=== PATIENT | female | born 1945 | race Caucasian/White ===

== ENCOUNTER → 2021-01-21 10:09 | Outpatient (BNVA) | payer MEDICARE, BC, SELFPAY | PROVIDERS: Family Provider Family Medicine; PCP Family Medicine; Visit Provider Podiatrist Foot & Ankle Surgery | DX: M06.9 Rheumatoid arthritis, unspecified (principal); M20.41 Other hammer toe(s) (acquired), right foot; M20.42 Other hammer toe(s) (acquired), left foot; M21.611 Bunion of right foot; M21.612 Bunion of left foot; M76.829 Posterior tibial tendinitis, unspecified leg; M21.41 Flat foot [pes planus] (acquired), right foot; M21.42 Flat foot [pes planus] (acquired), left foot | CPT/HCPCS: 73630 ==

== ENCOUNTER → 2023-08-02 14:01 | Outpatient (BNVA) | payer MEDICARE, SELFPAY | PROVIDERS: Family Provider Family Medicine; PCP Family Medicine; Visit Provider Internal Medicine Pulmonary Disease | DX: R91.8 Other nonspecific abnormal finding of lung field (principal); R59.0 Localized enlarged lymph nodes; K44.9 Diaphragmatic hernia without obstruction or gangrene; Z99.89 Dependence on other enabling machines and devices; J84.10 Pulmonary fibrosis, unspecified | CPT/HCPCS: 99204 ==

== ENCOUNTER → 2023-10-31 12:48 | Outpatient (BNVA) | payer MEDICARE, SELFPAY | PROVIDERS: Family Provider Family Medicine; PCP Family Medicine; Visit Provider Internal Medicine Pulmonary Disease | DX: J98.59 Other diseases of mediastinum, not elsewhere classified (principal); K44.9 Diaphragmatic hernia without obstruction or gangrene; G47.33 Obstructive sleep apnea (adult) (pediatric); Z99.89 Dependence on other enabling machines and devices | CPT/HCPCS: 99214 ==

== ENCOUNTER 2024-01-17 10:17 | Outpatient (CLI) | payer MEDICARE, SELFPAY ==
--- NOTE | 2024-01-17 10:30 | PETR_ITS ---
PROCEDURE INFORMATION: Exam: PET/CT Skull Base to Mid-thigh Exam date and time: 01/17/2024 11:33 AM Age: 78 years old Clinical indication: Abnormal radiologic findings in the chest on CT chest on 07/21/2023 (anterior mediastinal nodule or adenopathy). LABS AND CLINICAL REPORTS: Glucose: 157 mg/dl Treatment strategy for malignancy (PET staging): Initial Staging (PI) TECHNIQUE: Imaging protocol: Following at least four-hour fasting and following the injection of radiopharmaceutical, low dose CT images were obtained. Then, PET images were obtained. Attenuation corrected images were constructed using the CT scan. Fused images of PET and CT were reviewed. The standardized uptake values (SUV) reported below are maximum values within a region of interest, expressed in gm/ml. Exam includes orbital meatal line to mid-thigh. Radiopharmaceutical: 13.59 mCi F-18 FDG (Fluorodeoxyglucose), IV. Time of imaging post radiopharmaceutical administration: 1 hour Injection site: Right antecubital vein COMPARISON: CT chest 07/21/2023 FINDINGS: Brain: Visualized brain has normal physiologic uptake. Pharynx: No abnormal uptake. Larynx: No abnormal uptake. Lungs, pleura and trachea: No abnormal uptake. There are stable small calcified granulomas in the left lower lobe. There is stable subsegmental atelectasis or linear scar in the lingula. No pleural effusion. Heart: Normal physiologic uptake. Mediastinal space: No abnormal uptake. Non FDG avid upper anterior mediastinal elongated nodular density on axial image 65 measures 1.5 x 0.9 x 3.5 cm/35 HU versus 1.9 x 1.5 x 3.1 cm/27 HU on 07/21/2023. There is stable sequela of exposure to granulomatous disease with calcified granulomas in normal size subcarinal and left hilar lymph nodes. There is stable moderate size hiatal hernia. Liver: No abnormal uptake. Gallbladder and bile ducts: No abnormal uptake. Status post cholecystectomy. pancreas: No abnormal uptake. Pancreas: No abnormal uptake. Spleen: No abnormal uptake. No splenomegaly. Punctate calcified granuloma. Adrenal glands: No abnormal uptake. Kidneys and ureters: Normal physiologic uptake. No nodules. Stomach and bowel: No abnormal uptake. No hydronephrosis. Intraperitoneal and retroperitoneal spaces: No abnormal uptake. No ascites. Urinary bladder: Normal physiologic uptake. Reproductive: No abnormal uptake. The uterus is absent post surgically. Vasculature: No abnormal uptake. No aortic aneurysm. Lymph nodes: No abnormal uptake. No lymphadenopathy in the head, neck, chest, abdomen, pelvis, and extremities. Bones/joints: Mildly increased bilateral synovial uptake in the shoulders is compatible with benign inflammatory/degenerative finding. Soft tissues: No abnormal uptake in the visualized head, neck, chest, abdomen, pelvis, and extremities. There are small fat containing bilateral inguinal hernias, and small fat containing midline ventral hernia above the level of the umbilicus. [facility] [id number] IMPRESSION: No abnormal radiotracer uptake. Specifically, there is no abnormal uptake within the elongated anterior superior mediastinal density suggestive of benign incidental finding. It has slightly changed in shape but not in overall volume in comparison with prior exam on 07/21/2023 not typical for lymphadenopathy possibly representing cystic lesion with complex fluid. Given lack of progression or abnormal uptake no further workup is recommended.
== END 2024-01-17 10:18 | disposition home or self-care (01) ==
LOC: RAD 10:18
PROVIDERS: Family Provider Family Medicine; PCP Family Medicine; Visit Provider Internal Medicine Pulmonary Disease
DX: R91.8 Other nonspecific abnormal finding of lung field (principal); J98.59 Other diseases of mediastinum, not elsewhere classified
CPT/HCPCS: 78815; A9552

== ENCOUNTER → 2024-01-26 12:50 | Outpatient (BNVA) | payer MEDICARE, SELFPAY | PROVIDERS: Family Provider Family Medicine; PCP Family Medicine; Visit Provider Internal Medicine Pulmonary Disease | DX: J98.59 Other diseases of mediastinum, not elsewhere classified (principal); K44.9 Diaphragmatic hernia without obstruction or gangrene; G47.33 Obstructive sleep apnea (adult) (pediatric); Z99.89 Dependence on other enabling machines and devices | CPT/HCPCS: 99214 ==

== ENCOUNTER → 2024-12-12 14:17 | Outpatient (BNVA) | payer MEDICARE, SELFPAY | PROVIDERS: Family Provider Family Medicine; PCP Family Medicine; Visit Provider Podiatrist Foot & Ankle Surgery | DX: L60.3 Nail dystrophy (principal); I73.9 Peripheral vascular disease, unspecified; L84 Corns and callosities; M76.822 Posterior tibial tendinitis, left leg | CPT/HCPCS: 11055; 11721; 99203 ==

== ENCOUNTER → 2025-02-19 13:04 | Outpatient (BNVA) | payer MEDICARE, SELFPAY | PROVIDERS: Family Provider Family Medicine; PCP Family Medicine; Visit Provider Podiatrist Foot & Ankle Surgery | DX: I73.9 Peripheral vascular disease, unspecified (principal); L60.3 Nail dystrophy; L84 Corns and callosities; M76.822 Posterior tibial tendinitis, left leg | CPT/HCPCS: 11055; 11721; 99213 ==

== ENCOUNTER → 2025-04-23 14:33 | Outpatient (BNVA) | payer MEDICARE, SELFPAY | PROVIDERS: Family Provider Family Medicine; PCP Family Medicine; Visit Provider Podiatrist Foot & Ankle Surgery | DX: I73.9 Peripheral vascular disease, unspecified (principal); L60.3 Nail dystrophy; L84 Corns and callosities; M76.829 Posterior tibial tendinitis, unspecified leg; R60.9 Edema, unspecified; M76.822 Posterior tibial tendinitis, left leg | CPT/HCPCS: 11056; 11721; 99213 ==

== ENCOUNTER → 2025-06-27 13:02 | Outpatient (BNVA) | payer MEDICARE, SELFPAY | PROVIDERS: Family Provider Family Medicine; PCP Family Medicine; Visit Provider Podiatrist Foot & Ankle Surgery | DX: I73.9 Peripheral vascular disease, unspecified (principal); L60.3 Nail dystrophy; L84 Corns and callosities; R60.9 Edema, unspecified; M76.822 Posterior tibial tendinitis, left leg | CPT/HCPCS: 11056; 11721 ==

== ENCOUNTER → 2025-09-12 12:44 | Outpatient (BNVA) | payer MEDICARE, SELFPAY | PROVIDERS: Family Provider Family Medicine; PCP Family Medicine; Visit Provider Podiatrist Foot & Ankle Surgery | DX: I73.9 Peripheral vascular disease, unspecified (principal); L60.8 Other nail disorders; L60.3 Nail dystrophy; L84 Corns and callosities; R60.9 Edema, unspecified; M76.822 Posterior tibial tendinitis, left leg | CPT/HCPCS: 11721 ==